=== PATIENT | male | born 2005 | race Caucasian/White ===

== ENCOUNTER 2024-02-03 12:16 | Emergency (ER) | payer MEDICAID, SELFPAY ==
[2024-02-03 12:27] VITALS: BP 138/83; PULSE 95; RESP 16; TEMP 37.3; O2SAT 100
--- NOTE | 2024-02-03 13:11 | ED.SKABFB ---
HPI - Skin/Abscess/Foreign Bdy General Chief complaint: Skin/Abscess/Foreign Body Stated complaint: cyst right inner thigh Time Seen by Provider: 02/03/24 13:06 Source: patient and RN notes reviewed Mode of arrival: ambulatory Limitations: no limitations History of Present Illness HPI narrative: Patient presents today with a 3 day history of cyst to the right groin area. No history of staph infections, cysts, boils. No drainage noted. No treatment prior to arrival. Related Data Home Medications Medication Instructions Recorded Confirmed omeprazole 20 mg capsule,delayed 20 mg PO DAILY 02/03/24 02/03/24 release Allergies Allergy/AdvReac Type Severity Reaction Status Date / Time Penicillins Allergy Severe Unknown Verified 02/03/24 12:42 Review of Systems Review of Systems: CONSTITUTIONAL: Denies body aches, fever, chills, or sweats. EYES: Denies visual changes, redness, or discharge. ENT: Denies rhinorrhea, congestion, sore throat, or otalgia. CARDIOVASCULAR: Denies chest pain, palpitations, or edema. RESPIRATORY: Denies cough or dyspnea. GASTROINTESTINAL: Denies abdominal pain, nausea, vomiting, or diarrhea. GENITOURINARY: Denies dysuria or hematuria. SKIN: Denies rash, itching, or wounds.+ cyst to right groin MUSCULOSKELETAL: Denies back pain, joint pain, or myalgia. NEUROLOGIC: Denies headache, numbness, tingling, or weakness. PSYCH: Denies depression or anxiety. PMFSH Comments At time of signature, I have reviewed and agree with nursing past medical, surgical, social and family history unless otherwise noted. Please see nursing chart for further information. There is no relevant family history pertinent to the presenting complaint Exam Narrative: GENERAL: Well-appearing, well-nourished, and in no acute distress. HEAD: Normocephalic, atraumatic. EYES: EOMI. No redness or drainage. Conjunctivae normal. ENT: Mucous membranes pink and moist. NECK: Normal AROM. CHEST: No respiratory distress. EXTREMITIES: Normal range of motion. No edema. SKIN: Warm, dry, no rash. Capillary refill normal. Normal skin turgor. Approximately 2 cm round fluctuant lesion to the right upper inner thigh that is tender to palpation and slightly erythematous. No induration. NEURO: No focal deficits. Alert and oriented x3. Gait steady. PSYCH: Normal affect. No signs of depression or anxiety. Course Course Level of Care: Express Care Visit Vital Signs Vital signs: Vital Signs Temperature 99.1 F 02/03/24 12:27 Pulse Rate 95 02/03/24 12:27 Respiratory Rate 16 02/03/24 12:27 Blood Pressure 138/83 02/03/24 12:27 Pulse Oximetry 100 02/03/24 12:27 Oxygen Delivery Room Air 02/03/24 12:27 Temperature 99.1 F 02/03/24 12:27 Pulse Rate 95 02/03/24 12:27 Respiratory Rate 16 02/03/24 12:27 Blood Pressure 138/83 02/03/24 12:27 Pulse Oximetry 100 02/03/24 12:27 Oxygen Delivery Room Air 02/03/24 12:27 Reviewed Procedures Abscess I/D right groin: Date of Incision: 02/03/24 Time of Incision: 13:31 Side (if applicable): right Local Anesthetic: lidocaine 1% Amount of anesthesia used (mL): 2 Technique: incised with #11 blade Amount of fluid expressed (mL): 3 Irrigation: Yes Packing used?: none I&D Results: Pus and Blood Abcess I&D Additional Comments: Patient tolerated procedure well. Dressed with large Band-Aid MDM - Skin/Abscess/Foreign Bdy MDM Narrative Medical decision making narrative: Abscess I&D. Prescription for Bactrim sent to pharmacy. Anticipatory guidance given. Differential Diagnosis Differential diagnosis: Likely abscess of skin or subcutaneous tissue and cellulitis Critical Care Time Critical Care Time Critical Care Time: No Discharge Plan Discharge Clinical Impression: Abscess of groin, right Patient Disposition: Home, Self-Care Condition: Stable Instructions: Antib
[2024-02-03] MEDS: LIDOCAINE HCL 1% LOCAL INJ 2 ML AMPUL 4 ML INFILTRATE (13:18)
== END 2024-02-03 13:39 | disposition home or self-care (01) ==
PROVIDERS: Emergency Provider Nurse Practitioner
DX: L02.214 Cutaneous abscess of groin (principal); K21.9 Gastro-esophageal reflux disease without esophagitis
CPT/HCPCS: 10060; 99213; G0463